=== PATIENT | female | born 1975 | race African-American/Black ===

== ENCOUNTER 2016-09-22 22:00 | Emergency (ER) | payer MEDICAID ==
[~2016-09-22] VITALS: Ht 160 cm; Wt 105.0 kg
[2016-09-22 22:02] VITALS: BP 130/103; PULSE 70; RESP 16; TEMP 98.7; O2SAT 98
--- NOTE | 2016-09-22 22:04 | PD ---
Physical Exam Time Seen by Provider: 22:03 Narrative 41 y/o female with RLQ abdominal pain which started this evening. Vital signs reviewed. Seen at triage desk. Awaiting bed placement. Data Data Last Documented VS Vital Signs Date Time Temp Pulse Resp B/P Pulse Ox O2 Delivery O2 Flow Rate FiO2 09/22/16 22:02 98.7 70 16 130/103 98 MDM Medical Record Reviewed: Yes Supervised Visit with RONIT: Figueroa Daugherty September 22, 2016 22:04
[2016-09-22] MEDS ORDERED: SODIUM CHLORIDE 0.9% FLUSH 10 ML FLUSH IV FLUSH PRN (23:15)
[2016-09-22] MEDS ORDERED: MORPHINE SULFATE 4 MG/ML INJ IV PUSH ONE (23:15)
[2016-09-22] MEDS ORDERED: ONDANSETRON HCL 4 MG/2 ML VIAL IVP ONE (23:15)
[2016-09-22] MEDS ORDERED: PANT20TA2 PO (23:15)
--- NOTE | 2016-09-22 23:15 | PD ---
HPI . Abdominal pain Chief Complaint: Abdominal Pain Time Seen by Provider: 23:08 Travel History International Travel<30 days: No Contact w/Intl Traveler<30days: No Traveled to known affect area: No History of Present Illness HPI Patient presents with the acute onset of right lower quadrant abdominal pain. It started today. She states that it started in the right lower quadrant. She is unable to qualify her pain. She rates it as 9/10. Pain is exacerbated by urination. No relieving factor. She denies any associated symptoms such as fever, nausea/vomiting/diarrhea, urinary tract symptoms or red see a. Her last normal menstrual period was on 09/07/16. [facility] Social History Tobacco Use: No Allergies-Medications (Allergen,Severity, Reaction): Coded Allergies: No Known Allergies (Unverified , 09/22/16) Reported Meds & Prescriptions Reported Meds & Active Scripts Active Reported Pantoprazole (Pantoprazole Sodium) 20 Mg Tab 20 Mg PO DAILY Review of Systems Except as stated in HPI: all other systems reviewed are Neg General / Constitutional: No: Fever, Chills Gastrointestinal: Positive: Abdominal Pain, No: Nausea, Vomiting, Diarrhea, Loss of Appetite Genitourinary: No: Urgency, Frequency, Dysuria Physical Exam Narrative GENERAL: Awake and alert and in no acute distress. SKIN: Warm and dry. Numerous tattoos. HEAD: Atraumatic. Normocephalic. EYES: Pupils equal and round. Extraocular movements are intact. ENT: No nasal bleeding or discharge. Mucous membranes pink and moist. NECK: Trachea midline. Neck is supple. CARDIOVASCULAR: Regular rate and rhythm. RESPIRATORY: No accessory muscle use. GASTROINTESTINAL: Abdomen soft. Right lower quadrant tenderness. No guarding or rebound. Nondistended. MUSCULOSKELETAL: No obvious deformities. No edema. NEUROLOGICAL: Awake and alert. No obvious cranial nerve deficits. Motor grossly within normal limits. Normal speech. PSYCHIATRIC: Appropriate mood and affect; insight and judgment normal. Data Data Last Documented VS Vital Signs Date Time Temp Pulse Resp B/P Pulse Ox O2 Delivery O2 Flow Rate FiO2 09/22/16 22:02 98.7 70 16 130/103 98 Orders Urinalysis - C+S If Indicated (09/22/16 22:04) Ed Urine Pregnancytest Poc (09/22/16 22:04) Basic Metabolic Panel (Bmp) (09/22/16 23:12) Complete Blood Count With Diff (09/22/16 23:12) Iv Access Insert/Monitor (09/22/16 23:12) Morphine Inj (Morphine Inj) (09/22/16 23:15) Ondansetron Inj (Zofran Inj) (09/22/16 23:15) Sodium Chloride 0.9% Flush (Ns Flush) (09/22/16 23:15) Ct Abd/Pel W Iv Contrast(Rout) (09/23/16 ) Labs Laboratory Tests Test 09/22/16 09/22/16 23:20 23:45 White Blood Count 7.7 TH/MM3 Red Blood Count 4.32 MIL/MM3 Hemoglobin 11.9 GM/DL Hematocrit 35.5 % Mean Corpuscular Volume 82.3 FL Mean Corpuscular Hemoglobin 27.5 PG Mean Corpuscular Hemoglobin 33.5 % Concent Red Cell Distribution Width 13.1 % Platelet Count 273 TH/MM3 Mean Platelet Volume 9.1 FL Neutrophils (%) (Auto) 59.0 % Lymphocytes (%) (Auto) 30.1 % Monocytes (%) (Auto) 8.0 % Eosinophils (%) (Auto) 1.9 % Basophils (%) (Auto) 1.0 % Neutrophils # (Auto) 4.5 TH/MM3 Lymphocytes # (Auto) 2.3 TH/MM3 Monocytes # (Auto) 0.6 TH/MM3 Eosinophils # (Auto) 0.1 TH/MM3 Basophils # (Auto) 0.1 TH/MM3 CBC Comment DIFF FINAL Differential Comment Urine Color YELLOW Urine Turbidity CLEAR Urine pH 6.0 Urine Specific [place] 1.017 Urine Protein NEG mg/dL Urine Glucose (UA) NEG mg/dL Urine Ketones NEG mg/dL Urine Occult Blood NEG Urine Nitrite NEG Urine Bilirubin NEG Urine Urobilinogen LESS THAN 2.0 MG/DL Urine Leukocyte Esterase NEG Urine RBC LESS THAN 1 /hpf Urine WBC LESS THAN 1 /hpf Urine Squamous Epithelial 1 /hpf Cells Urine Bacteria RARE /hpf Microscopic Urinalysis Comment CULT NOT INDICATED MDM Medical Decision Making Medical Screen Exam Complete: Yes Emergency Medical Condition: Yes Differential Diagnosis Differential diagnosis of abdominal pain includes but is not limited to gastritis, pancreatitis, hepatitis, gastroenteritis, gallbladder disease, constipation, urinary retention, UTI, peptic ulcer disease, diverticulitis or appendicitis Narrative Course Patient presents with right lower quadrant abdominal pain. She does not have any associated symptoms suggestive of appendicitis such as anorexia or nausea. CBC Diagram 09/22/16 23:20 UA is negative for infection. 12:50 AM The patient's CT has not yet been done. Her care is being turned over to Dr. Melvin pending the CT. Diagnosis Primary Impression: Abdominal pain Qualified Code: R10.31 - Right lower quadrant abdominal pain Patient Instructions: Abdominal Pain (ED), General Instructions, Narcotic given in the ED Disposition: 01 DISCHARGE HOME Condition: Stable Romina Mckeon MD September 22, 2016 23:15
[2016-09-22 23:51] LABS: AUTOMATED NEUTROPHIL # 4.5 TH/MM3 (1.8-7.7); BASOPHIL # 0.1 TH/MM3 (0-0.2); EOSINOPHIL # 0.1 TH/MM3 (0-0.4); EOSINOPHIL % 1.9 % (0.0-4.0); HEMATOCRIT 35.5 % (35.0-46.0); HEMO FLAGS DIFF FINAL; LYMPH % 30.1 % (9.0-44.0); LYMPHOCYTE # 2.3 TH/MM3 (1.0-4.8); MEAN CELL VOLUME 82.3 FL (80.0-100.0); MEAN CORPUSCULAR HEMOGLOBIN 27.5 PG (27.0-34.0); MEAN CORPUSCULAR HGB CONC 33.5 % (32.0-36.0); PLATELET COUNT 273 TH/MM3 (150-450); RED BLOOD COUNT 4.32 MIL/MM3 (4.00-5.30); RED CELL DISTRIBUTION WIDTH 13.1 % (11.6-17.2); WHITE BLOOD COUNT 7.7 TH/MM3 (4.0-11.0)
[2016-09-23 00:24] LABS: BACTERIA, URINE RARE /hpf; BLOOD, URINE NEG (NEG); COMMENT (UR) CULT NOT INDICATED; CULTURE IF INDICATED CULT NOT INDICATED; GLUCOSE,URINE NEG (NEG); KETONE, URINE NEG (NEG); NITRITE,URINE NEG (NEG); SQUAMOUS EPITHELIAL CELL URINE 1 /hpf (0-5); URINE COLOR YELLOW (YELLW/STRAW)
[2016-09-23 01:05] LABS: POTASSIUM 3.7 MEQ/L (3.5-5.1)
[2016-09-23] MEDS ORDERED: IOHEXOL 350 MG/ML 10 ML VIAL (for RAD DIAG) IV ONE (01:11)
--- NOTE | 2016-09-23 01:19 | RADRPT ---
EXAM DATE/TIME: 09/23/2016 00:59 [facility] COMPARISON: No previous studies available for comparison. INDICATIONS : Lower right quadrant pain. IV CONTRAST: 93 cc Omnipaque 350 (iohexol) IV ORAL CONTRAST: No oral contrast ingested. RADIATION DOSE: 16.64 CTDIvol (mGy) MEDICAL HISTORY : Hypertension. Gastroesophageal reflux disease. SURGICAL HISTORY : Tummy tuck. ENCOUNTER: Initial ACUITY: 1 day PAIN SCALE: 9/10 LOCATION: Right lower quadrant TECHNIQUE: Volumetric scanning of the abdomen and pelvis was performed. Using automated exposure control and ad justment of the mA and/or kV according to patient size, radiation dose was kept as low as reasonably achievable to obtain optimal diagnostic quality images. FINDINGS: LOWER LUNGS: The visualized lower lungs are clear. LIVER: Homogeneous density without lesion. There is no dilation of the biliary tree. No calcified gallston es. SPLEEN: Normal size without lesion. PANCREAS: Within normal limits. KIDNEYS: Normal in size and shape. There is no mass or hydronephrosis. There is a tiny 1 mm nonobstructing le ft renal calculus in the upper pole. ADRENAL GLANDS: Within normal limits. VASCULAR: There is no aortic aneurysm. BOWEL/MESENTERY: No oral contrast was given limiting the sensitivity of the exam. The stomach, small bowel, and colon demonstrate no acute abnormality. There is no free intraperitoneal air or fluid. There is tentative visualization of a normal appendix. ABDOMINAL WALL: Within normal limits. RETROPERITONEUM: There is no lymphadenopathy. BLADDER: No wall thickening or mass. REPRODUCTIVE: The uterus is enlarged and inhomogeneous most consistent with leiomyomata. INGUINAL: There is no lymphadenopathy or hernia. MUSCULOSKELETAL: Within normal limits for patient age. CONCLUSION: 1. The uterus is enlarged and inhomogeneous most consistent with leiomyomata. 2. Tiny nonobstructing left renal calculus. 3. Tentative visualization of a normal appendix. The bowel gas pattern is unremarkable. Tim Huston MD on September 23, 2016 at 1:11 Board Certified Radiologist. This report was verified electronically.
[2016-09-23] MEDS ORDERED: ULTR50TA5 PO (03:03)
--- NOTE | 2016-09-23 03:03 | PD ---
Data Data Last Documented VS Vital Signs Date Time Temp Pulse Resp B/P Pulse Ox O2 Delivery O2 Flow Rate FiO2 09/23/16 03:22 78 136/84 96 09/22/16 22:02 98.7 16 Orders Urinalysis - C+S If Indicated (09/22/16 22:04) Ed Urine Pregnancytest Poc (09/22/16 22:04) Basic Metabolic Panel (Bmp) (09/22/16 23:12) Complete Blood Count With Diff (09/22/16 23:12) Iv Access Insert/Monitor (09/22/16 23:12) Morphine Inj (Morphine Inj) (09/22/16 23:15) Ondansetron Inj (Zofran Inj) (09/22/16 23:15) Sodium Chloride 0.9% Flush (Ns Flush) (09/22/16 23:15) Ct Abd/Pel W Iv Contrast(Rout) (09/23/16 ) Iohexol 350 Inj (Omnipaque 350 Inj) (09/23/16 01:11) Wet Prep Profile (09/23/16 02:46) Gc And Chlamydia Pcr (09/23/16 02:46) Labs Laboratory Tests Test 09/22/16 09/22/16 09/23/16 09/23/16 23:20 23:45 00:45 03:00 White Blood Count 7.7 TH/MM3 Red Blood Count 4.32 MIL/MM3 Hemoglobin 11.9 GM/DL Hematocrit 35.5 % Mean Corpuscular Volume 82.3 FL Mean Corpuscular Hemoglobin 27.5 PG Mean Corpuscular Hemoglobin 33.5 % Concent Red Cell Distribution Width 13.1 % Platelet Count 273 TH/MM3 Mean Platelet Volume 9.1 FL Neutrophils (%) (Auto) 59.0 % Lymphocytes (%) (Auto) 30.1 % Monocytes (%) (Auto) 8.0 % Eosinophils (%) (Auto) 1.9 % Basophils (%) (Auto) 1.0 % Neutrophils # (Auto) 4.5 TH/MM3 Lymphocytes # (Auto) 2.3 TH/MM3 Monocytes # (Auto) 0.6 TH/MM3 Eosinophils # (Auto) 0.1 TH/MM3 Basophils # (Auto) 0.1 TH/MM3 CBC Comment DIFF FINAL Differential Comment Urine Color YELLOW Urine Turbidity CLEAR Urine pH 6.0 Urine Specific [place] 1.017 Urine Protein NEG mg/dL Urine Glucose (UA) NEG mg/dL Urine Ketones NEG mg/dL Urine Occult Blood NEG Urine Nitrite NEG Urine Bilirubin NEG Urine Urobilinogen LESS THAN 2.0 MG/DL Urine Leukocyte Esterase NEG Urine RBC LESS THAN 1 /hpf Urine WBC LESS THAN 1 /hpf Urine Squamous Epithelial 1 /hpf Cells Urine Bacteria RARE /hpf Microscopic Urinalysis Comment CULT NOT INDICATED Sodium Level 141 MEQ/L Potassium Level 3.7 MEQ/L Chloride Level 107 MEQ/L Carbon Dioxide Level 28.0 MEQ/L Anion Gap 6 MEQ/L Blood Urea Nitrogen 12 MG/DL Creatinine 0.82 MG/DL Estimat Glomerular Filtration 93 ML/MIN Rate Random Glucose 98 MG/DL Calcium Level 8.3 MG/DL Clue Cells (Wet Prep) PRESENT Vaginal Trichomonas (Wet Prep) NONE SEEN Vaginal Yeast (Wet Prep) NONE SEEN Chlamydia trachomatis DNA DETECTED (PCR) Neisseria gonorrhoeae DNA NOT DETECTED (PCR) MDM Supervised Visit with RONIT: No Narrative Course Patient care assumed from Dr. Romina Mckeon at 01 100. Briefly this is a 41- year-old female who presents with right lower quadrant abdominal pain. She denies any vaginal bleeding vaginal discharge possibly for . Dr. esteban discharged with following up a CAT scan and disposition appropriately. Patient does not have pelvic exam as of yet. On my physical exam the patient is somewhat tender in the right lower quadrant. Discussion of the umbilicus there was no rebound no percussive tenderness, abdomen was soft. Genitourinary exam was added after the CAT scan resulted and there was no vaginal discharge no vaginal bleeding and no bimanual tenderness and no cervical motion tenderness. This exam was performed with female nurse senior software development engineer present at all times. My index suspicion for ovarian pathology is very unlikely. A CAT scan was reviewed and showed no obvious source of the pain: Last 24 hours Impressions Abdomen/Pelvis CT 09/23/16 0000 Signed Impressions: Service Date/Time: Friday, September 23, 2016 00:59 - CONCLUSION: 1. The uterus is enlarged and inhomogeneous most consistent with leiomyomata. 2. Tiny nonobstructing left renal calculus. 3. Tentative visualization of a normal appendix. The bowel gas pattern is unremarkable. Tim Huston MD Patient was offered additional pain medicines and she declined. Discussed the results with her and no definitive cause of her abdominal pain has been discovered and recommended follow-up the primary care physician and [employer] and she is happy with this course of action would like to be discharged. Discussed return to ED criteria. Diagnosis Primary Impression: Abdominal pain Qualified Code: R10.31 - Right lower quadrant abdominal pain Patient Instructions: General Instructions, Narcotic given in the ED, Abdominal Pain (ED) Med/Other Pt SpecificInfo: Prescription(s) given Scripts Tramadol (Ultram)50 Mg Tab50 Mg PO Q6H PRN (PAIN) #10 TAB Ref 0 Prov:Christophe Melvin MD 09/23/16 Disposition: 01 DISCHARGE HOME Condition: Stable Christophe Melvin MD September 23, 2016 03:03
[2016-09-23 03:22] VITALS: BP 136/84
[2016-09-23 05:13] LABS: CHLAMYDIA PCR DETECTED (NOT DETECT); NEISSERIA PCR NOT DETECTED (NOT DETECT)
== END 2016-09-23 03:27 | disposition home or self-care (01) ==
LOC: NEPD 22:00
DX: R10.31 Right lower quadrant pain (principal); N85.2 Hypertrophy of uterus; N20.0 Calculus of kidney
CPT/HCPCS: 74177; 80048; 81001; 84703; 85025; 87210; 87491; 87591; 96374; 96375; 99284; J2270; J2405; Q9967

== ENCOUNTER 2017-08-11 11:24 | Emergency (ER) | payer MEDICAID ==
[~2017-08-11] VITALS: Ht 162.6 cm; Wt 105.0 kg
[~2017-08-11 11:24] MED LIST: PANT20TA2 PO; TRAM50 PO
[2017-08-11 11:27] VITALS: BP 183/100; PULSE 69; RESP 17; TEMP 98.6; O2SAT 98
[2017-08-11] MEDS ORDERED: LOSA50TA PO (11:41)
[2017-08-11] MEDS ORDERED: PRENTAB75 PO (11:41)
--- NOTE | 2017-08-11 12:16 | PD ---
HPI Chief Complaint: Abdominal Pain Time Seen by Provider: 11:49 Travel History International Travel<30 days: No Contact w/Intl Traveler<30days: No Traveled to known affect area: No History of Present Illness HPI 42-year-old female arrives to the ED with complaint of body aches and pains for about 2 days. She describes suprapubic abdominal pain with radiation to the right flank distribution. She reports dysuria or frequency. No fever. Positive chills. No vomiting or diarrhea. Last menstruation was about 3 weeks prior. No abnormal vaginal bleeding or discharge. Onset gradual. PFSH Past Medical History GERD: Yes Hypertension: Yes Sickle Cell Disease: No (TRAIT) Influenza Vaccination: Yes ?: Not : 5 Para: 4 Miscarriage: 1 Tubal Ligation: Yes Past Surgical History Abdominal Surgery: Yes (TUMMY TUCK ) Social History Alcohol Use: Yes (OCCASIONALY ) Tobacco Use: No Substance Use: No Allergies-Medications (Allergen,Severity, Reaction): Coded Allergies: No Known Allergies (Unverified Adverse Reaction, Unknown, 08/11/17) Reported Meds & Prescriptions Reported Meds & Active Scripts Active Tramadol (Tramadol HCl) 50 Mg Tab 100 Mg PO Q6H PRN Ibuprofen 600 Mg Tab 600 Mg PO Q8HR PRN Reported [] 1 Tab PO DAILY Losartan (Losartan Potassium) 50 Mg Tab 50 Mg PO DAILY Review of Systems Except as stated in HPI: all other systems reviewed are Neg General / Constitutional: No: Fever Physical Exam Narrative GENERAL: 42-year-old female pleasant well-nourished well-developed Vital Signs Date Time Temp Pulse Resp B/P (MAP) Pulse Ox O2 Delivery O2 Flow Rate FiO2 08/11/17 11:27 98.6 69 17 183/100 (127) 98 SKIN: Warm and dry. HEAD: Atraumatic. Normocephalic. EYES: Pupils equal and round. No scleral icterus. No injection or drainage. ENT: No nasal bleeding or discharge. Mucous membranes pink and moist. NECK: Trachea midline. No JVD. CARDIOVASCULAR: Regular rate and rhythm. RESPIRATORY: No accessory muscle use. Clear to auscultation. Breath sounds equal bilaterally. GASTROINTESTINAL: Soft. No focal tenderness. No flank tenderness. MUSCULOSKELETAL: Extremities without clubbing, cyanosis, or edema. No obvious deformities. NEUROLOGICAL: Awake and alert. No obvious cranial nerve deficits. Motor grossly within normal limits. Five out of 5 muscle strength in the arms and legs. Normal speech. PSYCHIATRIC: Appropriate mood and affect; insight and judgment normal. Data Data Last Documented VS Vital Signs Date Time Temp Pulse Resp B/P (MAP) Pulse Ox O2 Delivery O2 Flow Rate FiO2 08/11/17 11:27 98.6 69 17 183/100 (127) 98 Orders Orders Urinalysis - C+S If Indicated (08/11/17 11:43) Ed Urine Pregnancytest Poc (08/11/17 11:43) Complete Blood Count With Diff (08/11/17 12:42) Comprehensive Metabolic Panel (08/11/17 12:42) Lipase (08/11/17 12:42) Iv Access Insert/Monitor (08/11/17 12:42) Ecg Monitoring (08/11/17 12:42) Oximetry (08/11/17 12:42) Sodium Chlor 0.9% 1000 Ml Inj (Ns 1000 M (08/11/17 12:42) Sodium Chloride 0.9% Flush (Ns Flush) (08/11/17 12:45) Us Pelvis Comp W Transvaginal (08/11/17 ) Ketorolac Inj (Toradol Inj) (08/11/17 12:45) Ed Discharge Order (08/11/17 14:00) Labs Laboratory Tests Test 08/11/17 11:40 08/11/17 13:35 Urine Color YELLOW Urine Turbidity CLEAR Urine pH 7.0 Urine Specific [place] 1.014 Urine Protein NEG mg/dL Urine Glucose (UA) NEG mg/dL Urine Ketones NEG mg/dL Urine Occult Blood NEG Urine Nitrite NEG Urine Bilirubin NEG Urine Urobilinogen LESS THAN 2.0 MG/DL Urine Leukocyte Esterase NEG Urine RBC LESS THAN 1 /hpf Urine WBC 2 /hpf Urine Squamous Epithelial Cells 10 /hpf Urine Bacteria RARE /hpf Microscopic Urinalysis Comment CULT NOT INDICATED White Blood Count 4.6 TH/MM3 Red Blood Count 4.37 MIL/MM3 Hemoglobin 12.1 GM/DL Hematocrit 36.1 % Mean Corpuscular Volume 82.6 FL Mean Corpuscular Hemoglobin 27.7 PG Mean Corpuscular Hemoglobin Concent 33.6 % Red Cell Distribution Width 14.2 % Platelet Count 281 TH/MM3 Mean Platelet Volume 8.8 FL Neutrophils (%) (Auto) 48.6 % Lymphocytes (%) (Auto) 37.1 % Monocytes (%) (Auto) 11.7 % Eosinophils (%) (Auto) 1.9 % Basophils (%) (Auto) 0.7 % Neutrophils # (Auto) 2.2 TH/MM3 Lymphocytes # (Auto) 1.7 TH/MM3 Monocytes # (Auto) 0.5 TH/MM3 Eosinophils # (Auto) 0.1 TH/MM3 Basophils # (Auto) 0.0 TH/MM3 CBC Comment DIFF FINAL Differential Comment Blood Urea Nitrogen 8 MG/DL Creatinine 0.68 MG/DL Random Glucose 79 MG/DL Total Protein 7.8 GM/DL Albumin 3.1 GM/DL Calcium Level 8.4 MG/DL Alkaline Phosphatase 43 U/L Aspartate Amino Transf (AST/SGOT) 16 U/L Alanine Aminotransferase (ALT/SGPT) 13 U/L Total Bilirubin 0.5 MG/DL Sodium Level 139 MEQ/L Potassium Level 3.5 MEQ/L Chloride Level 107 MEQ/L Carbon Dioxide Level 26.1 MEQ/L Anion Gap 6 MEQ/L Estimat Glomerular Filtration Rate 115 ML/MIN Lipase 173 U/L [facility] Medical Decision Making Medical Screen Exam Complete: Yes Emergency Medical Condition: Yes Medical Record Reviewed: Yes Differential Diagnosis Constipation, Gastritis, Acute Cholecystitis, Biliary Colic, Pancreatitis, COHEN , Hepatitis, Bowel Obstruction, Cystitis, Mesenteric Ischemia, AAA, Appendicitis , Renal Stone/Hydronephrosis, GERD, perforated viscous Narrative Course CBC & BMP Diagram 08/11/17 13:35 Total Protein 7.8, Albumin 3.1 L, Calcium Level 8.4 L, Alkaline Phosphatase 43 L , Aspartate Amino Transf (AST/SGOT) 16, Alanine Aminotransferase (ALT/SGPT) 13, Total Bilirubin 0.5 Lipase normal Last Impressions Pelvis Ultrasound 08/11/17 0000 Signed Impressions: Service Date/Time: Friday, August 11, 2017 12:53 - CONCLUSION: Marked enlargement of the uterus with multiple masses measuring up to 7.9 cm. Sb Floyd MD CT findings discussed with patients. Follow up plans d/w patient, gynecology follow up possible fibroidectomy or hysterectomy. Patient ready for discharge. Diagnosis Primary Impression: Mass of uterus Additional Impression: Uterine anomaly Referrals: Iris Go MD call for appointment Al Hui MD call for appointment Med/Other Pt SpecificInfo: Prescription(s) given Scripts Tramadol (Tramadol) 50 Mg Tab 100 MG PO Q6H Y for PAIN, #20 TAB 0 Refills Prov: Buck Calle MD 08/11/17 Ibuprofen (Ibuprofen) 600 Mg Tab 600 MG PO Q8HR Y for PAIN, #20 TAB 0 Refills Prov: Buck Calle MD 08/11/17 Disposition: 01 DISCHARGE HOME Condition: Stable Buck Calle MD Aug 11, 2017 12:16
[2017-08-11 12:39] LABS: BACTERIA, URINE RARE /hpf; BILIRUBIN, URINE NEG (NEG); BLOOD, URINE NEG (NEG); GLUCOSE,URINE NEG (NEG); KETONE, URINE NEG (NEG); NITRITE,URINE NEG (NEG); SQUAMOUS EPITHELIAL CELL URINE 10 /hpf (0-5); URINE COLOR YELLOW (YELLW/STRAW); URINE LEUKOCYTE ESTERASE NEG (NEG)
[2017-08-11] MEDS ORDERED: SODIUM CHLOR 0.9% 1000 ML INJ 1,000 ML IV SCH (12:42)
[2017-08-11] MEDS ORDERED: SODIUM CHLORIDE 0.9% FLUSH 10 ML FLUSH IV FLUSH PRN (12:45)
[2017-08-11] MEDS ORDERED: KETOROLAC TROMETHAMINE 30 MG/ML (IVP) VIAL IV PUSH ONE (12:45)
--- NOTE | 2017-08-11 13:53 | RADRPT ---
EXAM DATE/TIME: 08/11/2017 12:53 [facility] COMPARISON: No previous studies available for comparison. INDICATIONS : Pelvic pain. MEDICAL HISTORY : Gastroesophageal reflux disease. Hypertension. Sickle cell trait. SURGICAL HISTORY : Tubal ligation. Tummy tuck. ENCOUNTER: Initial ACUITY: 2 days PAIN SCORE: 9/10 LOCATION: Bilateral pelvis MEASUREMENTS: UTERUS: 14.6 x 9.5 x 10.0 cm ENDOMETRIAL STRIPE: 11 mm LEFT OVARY: 2.8 x 2.0 x 1.5 cm FINDINGS: UTERUS: Marked enlargement of the uterus with multiple heterogeneous echotexture masses, the largest of which measures 6.7 x 7.9 cm. There is a linear hyper echogenic structure believed to represent the endome trium which is displaced posterior to the largest mass. No evidence of endometrial fluid. The 2nd l argest mass measures 3.4 x 2.9 cm. Incidental note of subcentimeter nabothian cysts. RIGHT OVARY: The right ovary is not identified. LEFT OVARY: Ovary contains no mass or significant cystic lesion. MISCELLANEOUS: Questionable minimal free fluid in the cul-de-sac. CONCLUSION: Marked enlargement of the uterus with multiple masses measuring up to 7.9 cm. Sb Floyd MD on August 11, 2017 at 13:48 Board Certified Radiologist. This report was verified electronically.
[2017-08-11] MEDS ORDERED: IBUP-232 PO (13:57)
[2017-08-11] MEDS ORDERED: TRAM50TA PO (13:57)
[2017-08-11 14:34] LABS: AUTOMATED NEUTROPHIL # 2.2 TH/MM3 (1.8-7.7); BASOPHIL % 0.7 % (0.0-2.0); EOSINOPHIL # 0.1 TH/MM3 (0-0.4); EOSINOPHIL % 1.9 % (0.0-4.0); HEMATOCRIT 36.1 % (35.0-46.0); HEMOGLOBIN 12.1 GM/DL (11.6-15.3); LYMPH % 37.1 % (9.0-44.0); LYMPHOCYTE # 1.7 TH/MM3 (1.0-4.8); MEAN CELL VOLUME 82.6 FL (80.0-100.0); MEAN CORPUSCULAR HEMOGLOBIN 27.7 PG (27.0-34.0); MEAN CORPUSCULAR HGB CONC 33.6 % (32.0-36.0); MEAN PLATELET VOLUME 8.8 FL (7.0-11.0); MONO % 11.7 % (0.0-8.0); MONOCYTE # 0.5 TH/MM3 (0-0.9); NEUT % 48.6 % (16.0-70.0); PLATELET COUNT 281 TH/MM3 (150-450); RED BLOOD COUNT 4.37 MIL/MM3 (4.00-5.30); RED CELL DISTRIBUTION WIDTH 14.2 % (11.6-17.2); WHITE BLOOD COUNT 4.6 TH/MM3 (4.0-11.0)
[2017-08-11 14:52] LABS: ALBUMIN 3.1 GM/DL (3.4-5.0); AST (GOT) 16 U/L (15-37); BICARBONATE 26.1 MEQ/L (21.0-32.0); BLOOD UREA NITROGEN 8 MG/DL (7-18); CALCIUM 8.4 MG/DL (8.5-10.1); CHLORIDE 107 MEQ/L (98-107); CREATININE 0.68 MG/DL (0.50-1.00); GLOMERULAR FILTRATION RATE 115 ML/MIN (>89); GLUCOSE,RANDOM 79 MG/DL (74-106); SODIUM (NA) 139 MEQ/L (136-145)
[2017-08-11 14:54] LABS: ALT (GPT) 13 U/L (10-53)
[2017-08-11 14:56] LABS: ALKALINE PHOSPHATASE 43 U/L (45-117); TOTAL BILIRUBIN ADULT 0.5 MG/DL (0.2-1.0); TOTAL PROTEIN 7.8 GM/DL (6.4-8.2)
== END 2017-08-11 15:03 | disposition home or self-care (01) ==
LOC: NEPD 11:24
DX: N85.8 Other specified noninflammatory disorders of uterus (principal); N85.2 Hypertrophy of uterus
CPT/HCPCS: 76830; 76856; 80053; 81001; 83690; 84703; 85025

== ENCOUNTER 2017-08-25 22:20 | Emergency (ER) | payer MEDICAID ==
[~2017-08-25] VITALS: Ht 162.6 cm; Wt 106.5 kg
[~2017-08-25 22:20] MED LIST changes: +IBUP-232 PO; +LOSA50TA PO; -PANT20TA2 PO; +PRENTAB75 PO; -TRAM50 PO; +TRAM50TA PO
[2017-08-25 22:40] VITALS: BP 155/100; PULSE 70; RESP 18; TEMP 98.4; O2SAT 99
== END 2017-08-26 01:30 | disposition left against medical advice (07) ==
LOC: NED 22:20
DX: R09.89 Other specified symptoms and signs involving the circulatory and respiratory systems (principal)
CPT/HCPCS: 99281